=== PATIENT | female | born 1960 | race Hispanic/Latino ===

== ENCOUNTER 2017-09-21 10:07 | Outpatient (CLI) | payer MEDICARE, MEDICAID ==
--- NOTE | 2017-09-21 12:27 | CT ---
CT ABDOMEN AND PELVIS WITH CONTRAST: Date: 09/21/17 HISTORY: Malignant endometrium/uterine cancer. Yearly follow-up of uterine cancer. Chemo and radiation. Histo ry of cholecystectomy, appendectomy, left shoulder surgery, and hysterectomy. Also, history of pelvi c skin removed with history of a [facility]. COMPARISON: CT abdomen and pelvis dated 07/26/17. FINDINGS: Lung bases are clear. No suspicious pulmonary nodule. Chronic mild intrahepatic and extrahepatic biliary dilatation is present with intrahepatic portion o nly involving the right lobe of the liver, hepatic segments 6 and 7. Prior cholecystectomy. Portal vein is patent. The spleen, adrenal glands, and kidneys are unremarkab le. No hydronephrosis. Small, fat-containing left-sided indirect inguinal hernia. There is a right external iliac lymph nod e measuring 9.0 mm in short axis, unchanged from the 07/26/17 examination, although slightly enlarge d from the 10/25/16 exam. The fluid collection of the anterior abdominal wall seen on the 07/26/17 examination is resolved wit h postsurgical scar. No dilated loops of large or small bowel. No evidence of bowel obstruction. No free intraperitoneal gas or fluid. Mild dextroscoliosis of the lumbar spine. Moderate facet arthrosis at L4-5 and L5-S1. Moderate degen erative disease of the right hip. There is some mild loss of joint space. Moderate atherosclerotic plaque of the aortoiliac system. Superior mesenteric artery and celiac trun k are both patent, as well as the inferior mesenteric artery. There is a small left external iliac lymph node measuring 6.0 mm in short axis, similar to the 07/26 examination, although mildly increased from the 08/25/16 examination where this measured 4.0 mm in short axis. There is a small fat-containing umbilical hernia. IMPRESSION: 1. Interval resolution of postsurgical seroma of the right anterior abdominal wall. 2. Similar in size lymph nodes from the right common iliac and left external iliac lymph nodes rebecca uring 9.0 mm and 6.0 mm short axis, respectively, although have increased in size from the 10/15/16 examination. This is seen on series 2, images 53 and 60. The right and left lymph nodes were previou sly measured on the 2016 examination at 7.0 mm and 4.0 mm, respectively. Close attention on follow-u p imaging is recommended. 3. Chronic right intrahepatic and mild extrahepatic biliary dilatation. Left intrahepatic biliary s ystem is not dilated. POS: [facility]
[2017-09-21] MEDS ORDERED: Iopamidol 370 76% 100 ML VIAL ONE (14:18)
== END 2017-09-21 10:08 | disposition home or self-care (01) ==
LOC: CT 10:07
PROVIDERS: ATTEND Internal Medicine Medical Oncology
DX: C54.1 Malignant neoplasm of endometrium (principal)
CPT/HCPCS: 74177

== ENCOUNTER 2017-12-06 09:36 | Outpatient (CLI) | payer MEDICARE, MEDICAID | END 2017-12-06 09:37 | disposition home or self-care (01) | LOC: EKG 09:36 | PROVIDERS: ATTEND Nurse Practitioner Family | DX: Z51.81 Encounter for therapeutic drug level monitoring (principal); Z79.891 Long term (current) use of opiate analgesic | CPT/HCPCS: 93005; 93010 ==

== ENCOUNTER 2018-01-19 09:50 | Outpatient (CLI) | payer MEDICARE, MEDICAID | END 2018-01-19 09:51 | disposition home or self-care (01) | LOC: BICMAMMO 09:50 | PROVIDERS: ATTEND Internal Medicine Medical Oncology | DX: Z12.31 Encounter for screening mammogram for malignant neoplasm of breast (principal); Z85.42 Personal history of malignant neoplasm of other parts of uterus; Z51.0 Encounter for antineoplastic radiation therapy | CPT/HCPCS: 77063; 77067 ==

== ENCOUNTER 2018-03-22 11:10 | Outpatient (CLI) | payer MEDICARE, MEDICAID ==
[2018-03-22] MEDS ORDERED: ISOVUE-370 76%-LOCM 1 ML ONE (12:39)
== END 2018-03-22 11:11 | disposition home or self-care (01) ==
LOC: BICCT 11:10
PROVIDERS: ATTEND Internal Medicine Medical Oncology
DX: Z08 Encounter for follow-up examination after completed treatment for malignant neoplasm (principal); Z85.42 Personal history of malignant neoplasm of other parts of uterus; K44.9 Diaphragmatic hernia without obstruction or gangrene; Z90.49 Acquired absence of other specified parts of digestive tract; Z90.710 Acquired absence of both cervix and uterus
CPT/HCPCS: 74177

== ENCOUNTER 2018-06-09 15:12 | Outpatient (CLI) | payer MEDICARE, MEDICAID ==
[~2018-06-09 15:12] MED LIST: Gadobenate Dimeglumine 529 MG/1 ML (20ML VIAL) ONE
== END 2018-06-09 15:13 | disposition home or self-care (01) ==
LOC: BICMRI 15:12
PROVIDERS: ATTEND Specialist
DX: M51.16 Intervertebral disc disorders with radiculopathy, lumbar region (principal); M41.9 Scoliosis, unspecified; M47.897 Other spondylosis, lumbosacral region; M96.0 Pseudarthrosis after fusion or arthrodesis; Z98.890 Other specified postprocedural states
CPT/HCPCS: 72158; A9579

== ENCOUNTER 2019-01-02 08:53 | Outpatient (CLI) | payer MEDICARE, MEDICAID ==
--- NOTE | 2019-01-02 09:46 | RAD ---
CHEST TWO VIEWS: HISTORY: Cough. COMPARISON: Radiograph from 2010. FINDINGS: The lungs are without focal confluent air space consolidation, pneumothorax, or effusion. No acute o sseous abnormality. The cardiac silhouette and mediastinal contours are similar. IMPRESSION: No acute intrathoracic abnormality. POS: [facility]
== END 2019-01-02 08:54 | disposition home or self-care (01) ==
LOC: BICRAD 08:53
PROVIDERS: ATTEND Internal Medicine Medical Oncology
DX: R05 Cough (principal); C54.2 Malignant neoplasm of myometrium
CPT/HCPCS: 71046

== ENCOUNTER 2019-06-02 11:03 | Outpatient (CLI) | payer MEDICARE, MEDICAID ==
--- NOTE | 2019-06-02 11:31 | MMO ---
Bilateral MAMMO Bilat Screen [facility]. CLINICAL HISTORY: Patient is 58 years old and is seen for screening. The patient has no family history of breast cancer. The patient has a history of uterine cancer at age 53. VIEWS: The views performed were: bilateral craniocaudal with tomosynthesis and bilateral mediolateral oblique with tomosynthesis. FILMS COMPARED: The present examination has been compared to prior imaging studies performed at [facility] on 12/27/2012, 03/07/2014, 04/29/2016 and 01/19/2018. MAMMOGRAM FINDINGS: There are scattered fibroglandular densities. There are stable benign appearing calcifications seen in both breasts. There are no suspicious masses, suspicious calcifications, or new areas of architectural distortion. IMPRESSION: THERE IS NO MAMMOGRAPHIC EVIDENCE OF MALIGNANCY. A ROUTINE FOLLOW-UP MAMMOGRAM IN 1 YEAR IS RECOMMENDED. THE RESULTS OF THIS EXAM WERE SENT TO THE PATIENT. ACR BI-RADS Category 2 - Benign finding MAMMOGRAPHY NOTE: 1. A negative mammogram report should not delay a biopsy if a dominant of clinically suspicious mass is present. 2. Approximately 10% to 15% of breast cancers are not detected by mammography. 3. Adenosis and dense breasts may obscure an underlying neoplasm. Reported by: FRANCO CONWAY MD Electonically Signed: [id number]
== END 2019-06-02 11:04 | disposition home or self-care (01) ==
LOC: BICMAMMO 11:03
PROVIDERS: ATTEND Specialist
DX: Z12.31 Encounter for screening mammogram for malignant neoplasm of breast (principal); Z85.42 Personal history of malignant neoplasm of other parts of uterus
CPT/HCPCS: 77063; 77067

== ENCOUNTER 2019-06-23 11:05 | Outpatient (CLI) | payer MEDICARE, MEDICAID ==
--- NOTE | 2019-06-23 12:04 | RAD ---
EXAM: Two views chest PROVIDED CLINICAL HISTORY: History of uterine carcinoma. Staging evaluation. COMPARISON: 01/02/2019. FINDINGS: Cardiac silhouette and pulmonary vasculature are within normal limits. The lungs are clear. No discr ete pulmonary nodule or mass is seen. An anchor screw again overlies the left humeral head. Vascular calcifications are again seen in the thoracic aorta. IMPRESSION: No acute cardiopulmonary process.
--- NOTE | 2019-06-23 14:11 | CT ---
CT OF ABDOMEN AND PELVIS PERFORMED WITH INTRAVENOUS CONTRAST ENHANCEMENT: 06/23/19 HISTORY: Malignant neoplasm of myometrium. COMPARISON: 09/21/17 study as well as a 03/22/18 exam. The lung bases show some linear scarring. No pulmonary nodules. There are diffuse fatty changes of the liver which measures 16 cm in length. The spleen is within nor mal limits. Pancreas region is unremarkable. The gallbladder has been removed. The right and left adrenal glands and right and left kidneys are normal in size. There is no signific ant periaortic or mesenteric lymphadenopathy. CT OF PELVIS PERFORMED WITH CONTRAST ENHANCEMENT: Tiny subcentimeter iliac chain lymph nodes are again demonstrated. No significant pelvic lymphadenopa thy. Postop hysterectomy changes are present. IMPRESSION: 1. Fatty change of the liver. 2. Stable appearance to the subcentimeter iliac chain lymph nodes. 3. Postop cholecystectomy change. 4. Small hiatal hernia. POS: [facility]
[2019-06-23] MEDS ORDERED: Iopamidol 370 76% 100 ML VIAL ONE (16:32)
== END 2019-06-23 11:06 | disposition home or self-care (01) ==
LOC: CT 11:05 → RAD 11:06
PROVIDERS: ATTEND Internal Medicine Medical Oncology
DX: C54.2 Malignant neoplasm of myometrium (principal); K76.0 Fatty (change of) liver, not elsewhere classified; K44.9 Diaphragmatic hernia without obstruction or gangrene; Z90.49 Acquired absence of other specified parts of digestive tract
CPT/HCPCS: 71046; 74177; Q9967

== ENCOUNTER 2020-05-14 10:34 | Emergency (ER) | payer MEDICARE, MEDICAID ==
--- NOTE | 2020-05-14 11:48 | CT ---
Exam: Lumbar spine CT without contrast HISTORY: Right hip pain, x3 days. Chronic back pain. COMPARISON: None. FINDINGS: Lung bases are clear. Visualized solid organs do not demonstrate any acute abnormality. No retroperitoneal or paraspinal mass, lymphadenopathy or hematoma. Atherosclerosis of the aorta is i dentified. Gallbladder is surgically absent. Mild rightward curvature of the lumbar spine with the apex at the L2-L3 level. There is vacuum disc p henomenon along the left aspect of the L2-L3 disc space along with prominent osteophyte formation. 5 lumbar type vertebra. Visualized sacrum and pelvis are intact. Vacuum joint phenomenon in bilateral sacroiliac joints. Ther e appears to be remote right L2 pars defect. Partial resection of the left L2 pars. Laminectomy defect at L2-L3. Limited evaluation of the contents of the central spinal canal and neural foramina due to technique. T9-T10 through T12-L1: No significant central canal stenosis or significant neural foraminal narrowin g. L1-L2: No significant central canal stenosis or significant neural foraminal narrowing. L2-L3: Mild loss of disc space height. Broad-based disc bulge with a left subarticular component. The re is some mass effect and obscuration of the traversing left L2 nerve root. Posterior laminectomy defect. Right neural foramen is patent. Moderate to severe left foraminal narrowing due to osteophyte formation of the endplate, disc material and posterior element hypertrophy. L3-L4: Broad-based disc bulge, ligamentum flavum thickening and facet hypertrophy with mild to modera te central canal stenosis. Mild right and mild to moderate left neural foraminal narrowing. L4-L5: Broad-based disc bulge with slight inferior disc herniation. Ligamentum flavum thickening and facet hypertrophy are present. Moderate central canal stenosis. Moderate to severe right neural foraminal narrowing. Mild left foraminal narrowing. L5-S1: No significant central canal stenosis. Right neural foramen is moderately narrowed. Patent lef t neural foramen. IMPRESSION: 1. Vacuum disc phenomenon at L2-L3. 2. Mild rightward curvature of the lumbar spine. 3. No fracture. 4. Moderate central canal stenosis at L4-L5. Mild to moderate central canal stenosis at L3-L4. 5. Moderate to severe left neural foraminal narrowing at L2-L3 and moderate to severe right neural fo raminal narrowing at L4-L5. Transcribed Date/Time: 05/14/2020 12:12 PM
--- NOTE | 2020-05-14 11:50 | RAD ---
Exam:Right hip 2 views HISTORY: Pain COMPARISON: None FINDINGS: Contour of the femoral head is maintained. Hip joint spaces preserved. Visualized bony of t his is intact. IMPRESSION: No significant degenerative change or acute fracture.
--- NOTE | 2020-05-14 11:51 | RAD ---
Exam: One view pelvis HISTORY: Right hip pain, x3 days. COMPARISON: None FINDINGS: Bony pelvis is intact. Contour of bilateral femoral heads are maintained. Patent and symmet valeria hip joint space. This is sacrum and obturator rings do not demonstrate any abnormality IMPRESSION: No significant degenerative change. No acute fracture.
[2020-05-14] MEDS ORDERED: Dexamethasone 4 mg/ml Vial ONE (12:05)
[2020-05-14] MEDS ORDERED: Fentanyl 100 MCG/2 ML VIAL ONE (12:05)
[2020-05-14] MEDS ORDERED: Lorazepam 2 MG/ML VIAL ONE (12:05)
[2020-05-14] MEDS ORDERED: Ketorolac Tromethamine 30 MG/ML VIAL ONE (12:05)
== END 2020-05-14 12:40 | disposition home or self-care (01) ==
LOC: ERS 10:34
DX: M51.26 Other intervertebral disc displacement, lumbar region (principal); E03.9 Hypothyroidism, unspecified; I10 Essential (primary) hypertension; J45.909 Unspecified asthma, uncomplicated; C55 Malignant neoplasm of uterus, part unspecified; F41.9 Anxiety disorder, unspecified; F32.9 Major depressive disorder, single episode, unspecified; F17.210 Nicotine dependence, cigarettes, uncomplicated
CPT/HCPCS: 72131; 72170; 96374; 96375; J1100; J1885; J2060; J3010

== ENCOUNTER 2020-08-22 14:59 | Outpatient (CLI) | payer MEDICARE, MEDICAID ==
--- NOTE | 2020-08-22 16:23 | MMO ---
Bilateral MAMMO Bilat Screen [facility]. CLINICAL HISTORY: Patient is 60 years old and is seen for screening. The patient has no family history of breast cancer. The patient has a history of uterine cancer at age 53. VIEWS: The views performed were: bilateral craniocaudal with tomosynthesis and bilateral mediolateral oblique with tomosynthesis. FILMS COMPARED: The present examination has been compared to prior imaging studies performed at [facility] on 03/07/2014, 04/29/2016, 01/19/2018 and 06/02/2019. This study has been interpreted with the assistance of computer-aided detection. MAMMOGRAM FINDINGS: There are scattered fibroglandular densities. There are stable benign appearing calcifications seen in both breasts. There are no suspicious masses, suspicious calcifications, or new areas of architectural distortion. IMPRESSION: THERE IS NO MAMMOGRAPHIC EVIDENCE OF MALIGNANCY. A ROUTINE FOLLOW-UP MAMMOGRAM IN 1 YEAR IS RECOMMENDED. THE RESULTS OF THIS EXAM WERE SENT TO THE PATIENT. ACR BI-RADS Category 2 - Benign finding MAMMOGRAPHY NOTE: 1. A negative mammogram report should not delay a biopsy if a dominant of clinically suspicious mass is present. 2. Approximately 10% to 15% of breast cancers are not detected by mammography. 3. Adenosis and dense breasts may obscure an underlying neoplasm. Reported by: MARGOTH MCKENNA MD Electonically Signed: [id number]
== END 2020-08-22 15:00 | disposition home or self-care (01) ==
LOC: BICMAMMO 14:59
PROVIDERS: ATTEND Specialist
DX: Z12.31 Encounter for screening mammogram for malignant neoplasm of breast (principal); Z85.42 Personal history of malignant neoplasm of other parts of uterus
CPT/HCPCS: 77063; 77067

== ENCOUNTER 2023-11-09 13:27 | Outpatient (CLI) | payer OTHER, MEDICAID | END 2023-11-09 13:28 | disposition home or self-care (01) | LOC: BICMAMMO 13:27 | PROVIDERS: ATTEND Specialist | DX: Z12.31 Encounter for screening mammogram for malignant neoplasm of breast (principal); Z85.42 Personal history of malignant neoplasm of other parts of uterus | CPT/HCPCS: 77063; 77067 ==

== ENCOUNTER 2024-06-30 20:49 | Emergency (ER) | payer OTHER, MEDICAID ==
[~2024-06-30 20:49] MED LIST changes: -Gadobenate Dimeglumine 529 MG/1 ML (20ML VIAL) ONE; +Iopamidol-370 76% 500 ML MDV (1 ML CHARGE) ONE
[2024-06-30] MEDS ORDERED: Morphine 4 MG/ML VIAL ONE (21:52)
[2024-06-30] MEDS ORDERED: Orphenadrine Citrate 60 MG/2 ML VIAL ONE (21:52)
[2024-06-30] MEDS ORDERED: Ketorolac Tromethamine 30 MG (1 mL) VIAL ONE (21:52)
[2024-06-30] MEDS ORDERED: Ondansetron PF 4 MG/2 ML Vial ONE (21:52)
[2024-06-30 22:51] LABS: Hematocrit 28.6 % (36.0-47.0); Hemoglobin 9.7 g/dL (12.0-16.0); Mean Corpuscular HGB CONC 33.9 g/dL (32.0-36.0); Mean Corpuscular Hemoglobin 29.7 pg (27.0-31.0); Mean Corpuscular Volume 87.5 fL (78.0-98.0); Mean Platelet Volume 8.9 fL (7.4-10.4); Platelet Count 283 10x3/uL (130-400); RBC Distribution Width 15.3 % (11.5-14.5); Red Blood Cell (RBC) Count 3.27 mill/uL (4.20-5.40)
[2024-06-30 23:06] LABS: Magnesium 1.6 mg/dL (1.6-2.6)
[2024-06-30 23:11] LABS: Troponin I Less than 0.010 ng/mL (< 0.028)
[2024-06-30 23:21] LABS: Band 1 % (5-11); Eosinophils 2 % (0-10); Lymphocytes 14 % (21-51); Monocytes 6 % (0-10); Myelocyte 1 % (0-0); Neutrophil 76 % (42-75); Nucleated RBC (Manual Ct) 3 % (0); Plasma Cells 0 % (0-0); Platelet Adequacy Comment Appears Adequate; Polychromasia SLIGHT = 2-3 cells (100X) (0-2/hpf); Total Cell Count 100
[2024-07-01] MEDS ORDERED: HYDROmorphone 0.5 MG/0.5 ML SYRINGE ONE ×2 (00:29→04:02)
[2024-07-01 02:18] LABS: Bacteria/HPF None Seen HPF (None Seen); Bilirubin Negative (Negative); Blood, Urine 3+ (Negative); CAUTI Indications for Culture Fever or rigors; Clarity Extra Turbid (Clear); Glucose, Urine (Dipstick) Normal (Negative); Ketone, Urine Negative (Negative); Leukocyte 500 Leu/uL (Negative); Nitrite Negative (Negative); Protein, Urine (Dipstick) 200 mg/dL (Neg-Trace); RBC/HPF Greater than 50 HPF (0-3); Squamous Epithelial None Seen HPF (0-3); Urobilinogen Normal mg/dL (Less than 2); WBC/HPF Greater than 50 HPF (0-3); Yeast-Budding 2+ HPF (None Seen); pH, Urine 6.5 (5.0-9.0)
[2024-07-01 02:21] LABS: Urine Culture Reflex Yes Yes
[2024-07-01 03:26] LABS: ALT (SGPT) 15 U/L (8-55); AST (SGOT) 21 U/L (5-34); Albumin 2.6 g/dL (3.4-4.8); Alkaline Phosphatase 103 U/L (40-110); Anion Gap 15 mmol/L (10-20); BUN (Urea Nitrogen) 19 mg/dL (9.8-20.1); Bilirubin, Total 0.3 mg/dL (0.2-1.2); Calc. Creatinine Clearance 0 mL/min (70-130); Calcium 8.7 mg/dL (7.8-10.44); Carbon Dioxide 25 mmol/L (23-31); Chloride 101 mmol/L (98-107); Estimated GFR 82; Globulin 3.6 g/dL (2.4-3.5); Glucose 190 mg/dL (80-115); Potassium 4.5 mmol/L (3.5-5.1); Protein, Total 6.2 g/dL (5.8-8.1); Sodium 136 mmol/L (136-145)
== END 2024-07-01 05:21 | disposition short-term general hospital (02) ==
LOC: ERS 20:49
DX: M54.50 Low back pain, unspecified (principal); F17.210 Nicotine dependence, cigarettes, uncomplicated; I10 Essential (primary) hypertension; Z98.1 Arthrodesis status
CPT/HCPCS: 71275; 72131; 76999; 80053; 81001; 83605; 83735; 83880; 84484; 85025; 86141; 87040; 87077; 87086; 87186; 93005; J1170; J1885; J2272; J2360; J2405; Q9967; 51701; 96372; 96374; 96375; 96376

== ENCOUNTER 2024-07-26 20:04 | Emergency (ER) | payer OTHER, MEDICAID ==
[2024-07-26 21:20] LABS: #Basophils Less than 0.03 10x3/uL (0.0-0.2); %Basophils 0.4 % (0.0-1.0); %Eosinophils 1.6 % (0.0-10.0); %Lymphocytes 25.7 % (21.0-51.0); %Monocytes 8.4 % (0.0-10.0); %Neutrophils 63.5 % (42.0-75.0); Hematocrit 32.4 % (36.0-47.0); Hemoglobin 11.1 g/dL (12.0-16.0); Mean Corpuscular HGB CONC 34.3 g/dL (32.0-36.0); Mean Corpuscular Hemoglobin 29.5 pg (27.0-31.0); Mean Corpuscular Volume 86.2 fL (78.0-98.0); Mean Platelet Volume 11.7 fL (7.4-10.4); Platelet Count 305 10x3/uL (130-400); RBC Distribution Width 14.6 % (11.5-14.5); Red Blood Cell (RBC) Count 3.76 mill/uL (4.20-5.40)
[2024-07-26 21:35] LABS: CRP,High Sensitivity (Inhouse) 0.98 mg/dL (< or = 0.5)
[2024-07-26 21:38] LABS: ALT (SGPT) 11 U/L (8-55); AST (SGOT) 39 U/L (5-34); Albumin 3.3 g/dL (3.4-4.8); Alkaline Phosphatase 157 U/L (40-110); Anion Gap 20 mmol/L (10-20); BUN (Urea Nitrogen) 16 mg/dL (9.8-20.1); Bilirubin, Total 0.3 mg/dL (0.2-1.2); Calc. Creatinine Clearance 0 mL/min (70-130); Calcium 9.8 mg/dL (7.8-10.44); Carbon Dioxide 22 mmol/L (23-31); Chloride 102 mmol/L (98-107); Estimated GFR 50; Globulin 4.6 g/dL (2.4-3.5); Glucose 108 mg/dL (80-115); Potassium 4.9 mmol/L (3.5-5.1); Protein, Total 7.9 g/dL (5.8-8.1); Sodium 139 mmol/L (136-145)
== END 2024-07-27 01:20 | disposition home or self-care (01) ==
LOC: ERS 20:04
DX: S32.019A Unspecified fracture of first lumbar vertebra, initial encounter for closed fracture (principal); I12.0 Hypertensive chronic kidney disease with stage 5 chronic kidney disease or end stage renal disease; E11.22 Type 2 diabetes mellitus with diabetic chronic kidney disease; N18.30 Chronic kidney disease, stage 3 unspecified; F17.210 Nicotine dependence, cigarettes, uncomplicated; X58.XXXA Exposure to other specified factors, initial encounter
CPT/HCPCS: 72131; 80053; 85025; 86141; J1885; J2272; 96374; 96375

== ENCOUNTER 2024-07-28 13:30 | Inpatient (IN) | payer MEDICAID, OTHER ==
[2024-07-28 14:40] LABS: #Basophils 0.04 10x3/uL (0.0-0.2); %Basophils 0.7 % (0.0-1.0); %Lymphocytes 24.6 % (21.0-51.0); %Monocytes 7.2 % (0.0-10.0); %Neutrophils 62.8 % (42.0-75.0); Hematocrit 36.8 % (36.0-47.0); Hemoglobin 11.9 g/dL (12.0-16.0); Mean Corpuscular HGB CONC 32.3 g/dL (32.0-36.0); Mean Corpuscular Hemoglobin 28.8 pg (27.0-31.0); Mean Corpuscular Volume 89.1 fL (78.0-98.0); Mean Platelet Volume 9.8 fL (7.4-10.4); Platelet Count 249 10x3/uL (130-400); RBC Distribution Width 14.6 % (11.5-14.5); Red Blood Cell (RBC) Count 4.13 mill/uL (4.20-5.40)
[2024-07-28 15:00] LABS: Lipase 26 U/L (8-78)
[2024-07-28 15:03] LABS: Acetaminophen Less than 10 mcg/mL (Less than 10); Alcohol Less than 10.0 mg/dL (Less than 10); Salicylate Less than 8.0 mg/dL (Less than 8.0)
[2024-07-28 15:13] LABS: ALT (SGPT) 13 U/L (8-55); AST (SGOT) 24 U/L (5-34); Albumin 3.5 g/dL (3.4-4.8); Alkaline Phosphatase 176 U/L (40-110); Anion Gap 15 mmol/L (10-20); BUN (Urea Nitrogen) 37 mg/dL (9.8-20.1); Bilirubin, Total 0.4 mg/dL (0.2-1.2); Calc. Creatinine Clearance 0 mL/min (70-130); Calcium 9.8 mg/dL (7.8-10.44); Carbon Dioxide 26 mmol/L (23-31); Chloride 102 mmol/L (98-107); Estimated GFR 21; Globulin 4.3 g/dL (2.4-3.5); Glucose 98 mg/dL (80-115); Potassium 4.3 mmol/L (3.5-5.1); Protein, Total 7.8 g/dL (5.8-8.1); Sodium 139 mmol/L (136-145)
[2024-07-28] MEDS ORDERED: Naloxone HCl 0.4 mg/ml Vial ONE (15:24)
[2024-07-28] MEDS ORDERED: Ondansetron PF 4 MG/2 ML Vial ONE (15:25)
[2024-07-28 15:52] LABS: Amphetamine Not Detected (NotDetected); Barbiturates Screen Not Detected (NotDetected); Benzodiazepine Screen Detected (NotDetected); Cocaine Metabolite Screen Not Detected (NotDetected); Methadone Not Detected (NotDetected); Methamphetamine Not Detected (NotDetected); Opiate Screen Detected (NotDetected); Oxycodone Screen Not Detected (NotDetected); Phencyclidine (PCP) Not Detected (NotDetected); THC/Cannabinoid Screen Not Detected (NotDetected); Tricyclic Screen Detected (NotDetected)
[2024-07-28 15:53] LABS: Troponin I Less than 0.010 ng/mL (< 0.028)
[2024-07-28 15:59] LABS: Bacteria/HPF None Seen HPF (None Seen); Blood, Urine Negative (Negative); CAUTI Indications for Culture Alt mental st,lethar; Clarity Turbid (Clear); Glucose, Urine (Dipstick) Normal (Negative); Ketone, Urine Negative (Negative); Leukocyte 250 Leu/uL (Negative); Nitrite Negative (Negative); Protein, Urine (Dipstick) 30 mg/dL (Neg-Trace); RBC/HPF 0-3 HPF (0-3); Specific Gravity, Urine 1.036 (1.002-1.036); Squamous Epithelial 0-3 HPF (0-3)
[2024-07-28 16:07] LABS: Bilirubin 1+ (Negative); Urobilinogen 6 mg/dL (Less than 2)
[2024-07-28 16:13] LABS: Calcium Oxalate Crystals 1+ HPF (None Seen); Urine Culture Reflex No No; Yeast-Budding 2+ HPF (None Seen)
[2024-07-28] MEDS ORDERED: Hydrocortisone Sod Succ/PF 100 mg/2 ml Vial ONE (17:56)
[2024-07-28 18:33] LABS: SARS-CoV-2 E Target Negative; SARS-CoV-2 N2 Target Negative; SARS-CoV-2 NAA Rapid Test Not Detected (NotDetected); SARS-CoV-2 RdRP gene Negative
[2024-07-28] MEDS ORDERED: methylPREDNISolone Sod Succ/PF 125 MG/2 ML VIAL ONE (21:59)
[2024-07-28] MEDS ORDERED: Acetaminophen 325 MG (10.15 ML) UDCUP PO PRN (23:11)
[2024-07-28] MEDS ORDERED: Acetaminophen 650 MG Suppository PR PRN (23:11)
[2024-07-28] MEDS ORDERED: Ondansetron PF 4 MG/2 ML Vial IVP PRN (23:13)
[2024-07-28] MEDS ORDERED: Ondansetron ODT 4 MG TAB PO PRN (23:13)
[2024-07-28] MEDS ORDERED: Dextrose 50% Abboject 50 ML SYRINGE SLOW IVP PRN (23:14)
[2024-07-28] MEDS ORDERED: Dextrose 5% in Water 1,000 ML IV PRN (23:14)
[2024-07-28] MEDS ORDERED: Glucagon 1 MG/ML KIT IM PRN (23:14)
[2024-07-28] MEDS ORDERED: Insulin Lispro 100 UNIT/ML 10 ML VIAL SC PRN ×2 (23:14)
[2024-07-28] MEDS ORDERED: NOREPINEPHRINE 8 MG/250 ML-D5W 250 ML IVPB SCH (23:15)
[2024-07-28] MEDS ORDERED: NOREPINEPHRINE 8 MG/250 ML-D5W 250 ML ONE (23:15)
[2024-07-29 01:20] LABS: Hemoglobin A1c 5.6 % (4.0-6.0)
[2024-07-29 03:11] VITALS: BMI 42.9
[2024-07-29 04:57] LABS: #Basophils Less than 0.03 10x3/uL (0.0-0.2); #Eosinphils Less than 0.03 10x3/uL (0.0-0.7); %Eosinophils 0.3 % (0.0-10.0); %Lymphocytes 14.2 % (21.0-51.0); %Monocytes 1.2 % (0.0-10.0); %Neutrophils 83.7 % (42.0-75.0); Hematocrit 33.4 % (36.0-47.0); Hemoglobin 10.7 g/dL (12.0-16.0); Mean Corpuscular Hemoglobin 28.8 pg (27.0-31.0); Mean Platelet Volume 9.8 fL (7.4-10.4); Platelet Count 170 10x3/uL (130-400); RBC Distribution Width 14.6 % (11.5-14.5); Red Blood Cell (RBC) Count 3.71 mill/uL (4.20-5.40)
[2024-07-29 05:46] LABS: ALT (SGPT) 12 U/L (8-55); AST (SGOT) 21 U/L (5-34); Albumin 2.8 g/dL (3.4-4.8); Alkaline Phosphatase 146 U/L (40-110); Anion Gap 13 mmol/L (10-20); BUN (Urea Nitrogen) 35 mg/dL (9.8-20.1); Bilirubin, Total 0.3 mg/dL (0.2-1.2); Calc. Creatinine Clearance 97 mL/min (70-130); Calcium 8.6 mg/dL (7.8-10.44); Carbon Dioxide 20 mmol/L (23-31); Chloride 110 mmol/L (98-107); Estimated GFR 52; Globulin 3.8 g/dL (2.4-3.5); Glucose 172 mg/dL (80-115); Potassium 4.6 mmol/L (3.5-5.1); Protein, Total 6.6 g/dL (5.8-8.1); Sodium 138 mmol/L (136-145)
[2024-07-29] MEDS: Ipratropium/Albuterol 3 ML NEB NEB SCH (10:10)
[2024-07-29] MEDS: Famotidine/PF 20 mg/2ml Vial SLOW IVP SCH (10:58)
[2024-07-29] MEDS: Furosemide 20 MG (2 mL) VIAL SLOW IVP SCH (16:37)
[2024-07-29] MEDS: Montelukast Sodium 10 mg Tablet PO SCH (20:16)
[2024-07-29] MEDS: traMADol HCl 50 MG TAB PO PRN (20:16)
[2024-07-30 06:22] LABS: ALT (SGPT) 10 U/L (8-55); AST (SGOT) 18 U/L (5-34); Albumin 2.7 g/dL (3.4-4.8); Alkaline Phosphatase 128 U/L (40-110); Anion Gap 13 mmol/L (10-20); BUN (Urea Nitrogen) 27 mg/dL (9.8-20.1); Bilirubin, Total 0.3 mg/dL (0.2-1.2); Calc. Creatinine Clearance 80 mL/min (70-130); Carbon Dioxide 25 mmol/L (23-31); Chloride 106 mmol/L (98-107); Estimated GFR 86; Globulin 3.5 g/dL (2.4-3.5); Glucose 118 mg/dL (80-115); Potassium 3.6 mmol/L (3.5-5.1); Protein, Total 6.2 g/dL (5.8-8.1); Sodium 140 mmol/L (136-145)
[2024-07-30 06:27] LABS: #Basophils Less than 0.03 10x3/uL (0.0-0.2); #Eosinphils Less than 0.03 10x3/uL (0.0-0.7); %Eosinophils 0.6 % (0.0-10.0); %Lymphocytes 33.5 % (21.0-51.0); %Monocytes 8.2 % (0.0-10.0); %Neutrophils 57.1 % (42.0-75.0); Hematocrit 29.8 % (36.0-47.0); Hemoglobin 9.8 g/dL (12.0-16.0); Mean Corpuscular HGB CONC 32.9 g/dL (32.0-36.0); Mean Corpuscular Hemoglobin 28.6 pg (27.0-31.0); Mean Corpuscular Volume 86.9 fL (78.0-98.0); Mean Platelet Volume 9.9 fL (7.4-10.4); Platelet Count 175 10x3/uL (130-400); RBC Distribution Width 14.4 % (11.5-14.5); Red Blood Cell (RBC) Count 3.43 mill/uL (4.20-5.40)
[2024-07-30] MEDS: Ipratropium/Albuterol 3 ML NEB IPPB PRN (08:42)
[2024-07-30 09:02] VITALS: BP 147/68; TEMP 97.4
== END 2024-07-30 12:14 | DRG 315 ==
LOC: ERS 13:30 → ERHOLD 21:46 → EEVIPCON 21:46 → 2NO 07-29 13:42
PROVIDERS: ADMIT Student in an Organized Health Care Education/Training Program; ATTEND Internal Medicine
DX: I95.9 Hypotension, unspecified (principal); N17.9 Acute kidney failure, unspecified; J45.909 Unspecified asthma, uncomplicated; E11.9 Type 2 diabetes mellitus without complications; R00.1 Bradycardia, unspecified; E03.9 Hypothyroidism, unspecified; I10 Essential (primary) hypertension; Z90.49 Acquired absence of other specified parts of digestive tract; Z90.710 Acquired absence of both cervix and uterus; F41.9 Anxiety disorder, unspecified; F17.210 Nicotine dependence, cigarettes, uncomplicated
CPT/HCPCS: 36415; 36556; 71045; 72131; 80053; 80306; 80307; 81001; 82533; 82550; 83036; 83605; 83690; 83880; 84443; 84484; 85025; 86141; 93005; 93306; 94640; 96374; 96375; J1720; J1885; J1940; J2272; J2310; J2405; J2919; J3490; J7620; U0002